=== PATIENT | male | born 1955 | race Caucasian/White ===

== ENCOUNTER 2018-05-19 19:41 | Observation (INO) | payer OTHER ==
--- NOTE | 2018-05-19 21:44 | RAD REPORT ---
EXAM DESCRIPTION: CT - Head Brain Wo Cont - 05/19/2018 9:33 pm CLINICAL HISTORY: hypertension;Headache COMPARISON: No comparisons TECHNIQUE: All CT scans are performed using dose optimization technique as appropriate and may inclu de automated exposure control or mA/KV adjustment according to patient size. FINDINGS: No intracranial hemorrhage, hydrocephalus or extra-axial fluid collection.No areas of brai n edema or evidence of midline shift. The paranasal sinuses and mastoids are clear. The calvarium is intact. Vertebral atherosclerosis note d. IMPRESSION: No acute intracranial abnormality.
[2018-05-19 21:48] LABS: Absolute Lymphocytes (CBC) 2.2 K/uL (0.7-4.9); Absolute Monocytes 0.4 K/uL (0.1-1.3); Absolute Neutrophil 3.9 K/uL (1.8-8.0); Basophils % 0.4 % (0-1.3); Eosinophils % 1.2 % (0-4.4); Hematocrit 40.2 % (39.6-49.0); Lymphocytes % 33.7 % (15.3-44.8); MCH 30.5 pg (27.0-35.0); MCV 88.4 fL (80-100); MPV 9.4 fL (7.6-11.3); RBC Red Blood Cell Count 4.56 M/uL (4.33-5.43)
--- NOTE | 2018-05-19 21:48 | RAD REPORT ---
EXAM DESCRIPTION: RAD - Chest Single View - 05/19/2018 9:43 pm CLINICAL HISTORY: DYSPNEA Chest pain. COMPARISON: No comparisons FINDINGS: Portable technique limits examination quality. The lungs are grossly clear. The heart is mildly prominent in size. No displaced fractures. IMPRESSION: No acute intrathoracic process suspected.
[2018-05-19 22:06] LABS: Albumin 3.6 g/dL (3.4-5.0); Bilirubin Direct 0.2 mg/dL (0-0.2); Bilirubin Total 0.4 mg/dL (0.2-1.0); CKMB Creatine Kinase MB 1.3 ng/mL (0.3-3.6); Magnesium 1.9 mg/dL (1.8-2.4); Potassium 3.9 mmol/L (3.5-5.1); Protein, Total 6.8 g/dL (6.4-8.2)
--- NOTE | 2018-05-19 23:37 | EDPHYS ---
Physician Documentation [facility] Name: Brooks Nye Age: 62 yrs Sex: Male : 1955 Arrival Date: 05/19/2018 Time: 19:42 Bed 26 Private MD: ED Physician Isai Gonzales HPI: 05/19 21:15 This 62 yrs old Male presents to ER via Ambulatory with complaints of cp Shortness Of Breath, High Blood Pressure. 21:15 The patient has shortness of breath with light activity. cp 21:15 Onset: The symptoms/episode began/occurred gradually, and became worse today. cp 21:15 Duration: The symptoms are continuous, and are steadily getting worse. Associated signs cp and symptoms: Pertinent positives: elevated blood pressure, Pertinent negatives: chest pain, non-productive cough, productive cough, fever, visual changes, vomiting. Severity of symptoms: in the emergency department the symptoms are unchanged despite home interventions. Historical: - Allergies: 20:00 No Known Allergies; lk1 - PMHx: 20:00 Hypertension; High Cholesterol; Diabetes - NIDDM; lk1 - PSHx: 20:00 Tonsillectomy; lk1 - Immunization history:: Adult Immunizations up to date. - Social history:: Smoking status: Patient/guardian denies using tobacco, the patient reports quitting approximately 12 years ago. - Ebola Screening: : No symptoms or risks identified at this time. ROS: 21:20 Constitutional: Negative for body aches, chills, fever, poor PO intake. cp 21:20 Eyes: Negative for injury, pain, redness, and discharge. cp 21:20 ENT: Negative for drainage from ear(s), ear pain, sore throat, difficulty swallowing, difficulty handling secretions. 21:20 Cardiovascular: Negative for chest pain, palpitations. 21:20 Respiratory: Positive for shortness of breath, on exertion. Negative for cough, wheezing. 21:20 Abdomen/GI: Negative for abdominal pain, nausea, vomiting, and diarrhea, black/tarry stool, rectal bleeding. 21:20 Back: Negative for pain at rest, pain with movement, radiated pain. 21:20 : Negative for urinary symptoms. 21:20 Skin: Negative for cellulitis, rash. 21:20 Neuro: Negative for altered mental status, dizziness, headache, syncope, near syncope, weakness. 21:20 All other systems are negative. Exam: 21:28 Constitutional: The patient appears in no acute distress, alert, awake, cp non-diaphoretic, non-toxic, well developed, well nourished. 21:28 Head/Face: Normocephalic, atraumatic. Eyes: Pupils equal round and reactive to light, cp extra-ocular motions intact. Lids and lashes normal. Conjunctiva and sclera are non-icteric and not injected. Cornea within normal limits. Periorbital areas with no swelling, redness, or edema. ENT: Nares patent. No nasal discharge, no septal abnormalities noted. Tympanic membranes are normal and external auditory canals are clear. Oropharynx with no redness, swelling, or masses, exudates, or evidence of obstruction, uvula midline. Mucous membranes moist. Neck: Trachea midline, no thyromegaly or masses palpated, and no cervical lymphadenopathy. Supple, full range of motion without nuchal rigidity, or vertebral point tenderness. No Meningismus. Chest/axilla: Normal chest wall appearance and motion. Nontender with no deformity. No lesions are appreciated. 21:28 Cardiovascular: Rate: bradycardic, Rhythm: regular, Pulses: Pulses are 2+ in right radial artery and left radial artery. Edema: mild bilateral lower legs, JVD: is not appreciated. 21:28 Respiratory: the patient does not display signs of respiratory distress, Respirations: normal, no use of accessory muscles, no retractions, no splinting, no tachypnea, labored breathing, is not present, Breath sounds: are clear throughout, no decreased breath sounds, no stridor, no wheezing. 21:28 Abdomen/GI: Inspection: abdomen appears normal, Bowel sounds: active, all quadrants, Palpation: abdomen is soft and non-tender, in all quadrants, rebound tenderness, is not appreciated, voluntary guarding, is not appreciated, involuntary guarding, is not appreciated. 21:28 Back: pain, is absent, ROM is normal. 21:28 Skin: cellulitis, is not appreciated, no rash present. 21:28 Neuro: Orientation: to person, place \T\ time. Mentation: lucid, able to follow commands, Cerebellar function: is grossly normal, Motor: moves all fours, strength is normal, Sensation: no obvious gross deficits. 21:58 ECG was reviewed by the Attending Physician. cp Vital Signs: 20:01 BP 184 / 58; Pulse 54; Resp 20; Temp 97.4(TE); Pulse Ox 98% on R/A; Weight 140.61 kg lk1 (R); Height 6 ft. 0 in. (182.88 cm) (R); Pain 0/10; 21:32 BP 169 / 62; Pulse 51; Resp 18; Pulse Ox 98% on R/A; mb3 23:11 BP 142 / 57; Pulse 45; Resp 18; Pulse Ox 96% on R/A; mb3 23:30 BP 131 / 68; Pulse 44; Resp 18; Pulse Ox 98% on R/A; mb3 05/20 01:40 BP 157 / 65; Pulse 46; Resp 18; Pulse Ox 97% on R/A; mb3 05/19 20:01 Body Mass Index 42.04 (140.61 kg, 182.88 cm) lk1 MDM: 05/19 20:45 Patient medically screened. cp 22:35 Data reviewed: vital signs, nurses notes, lab test result(s), EKG, radiologic studies, cp plain films. 22:35 Test interpretation: by ED physician or midlevel provider: ECG, plain radiologic cp studies. 23:00 Physician consultation: Axel Cotto MD was contacted at 23:00, regarding admission, cp to the telemetry unit. patient's condition. 05/19 21:14 Order name: Basic Metabolic Panel; Complete Time: 22:29 cp 05/19 22:30 Interpretation: Normal except: GLUC 240; BUN 21; CRE 1.40; GFR 52. cp 05/19 21:14 Order name: CBC with Diff; Complete Time: 21:57 cp 05/19 21:14 Order name: Ckmb; Complete Time: 22:29 cp 05/19 21:14 Order name: CPK; Complete Time: 22:29 cp 05/19 21:14 Order name: LFT's; Complete Time: 22:29 cp 05/19 21:14 Order name: Magnesium; Complete Time: 22:29 cp 05/19 21:14 Order name: NT PRO-BNP; Complete Time: 22:29 cp 05/19 21:14 Order name: PT-INR; Complete Time: 21:57 cp 05/19 21:14 Order name: Ptt, Activated; Complete Time: 21:57 cp 05/19 21:14 Order name: Troponin (emerg Dept Use Only); Complete Time: 22:29 cp 05/19 21:14 Order name: XRAY Chest (1 view); Complete Time: 21:57 cp 05/19 21:14 Order name: CT Head Brain wo Cont; Complete Time: 21:57 cp 05/19 23:31 Order name: Urine Dipstick--Ancillary (enter results) rg2 05/19 21:14 Order name: EKG; Complete Time: 21:15 cp 05/19 21:14 Order name: Cardiac monitoring; Complete Time: 21:17 cp 05/19 21:14 Order name: EKG - Nurse/Tech; Complete Time: 21:49 cp 05/19 21:14 Order name: IV Saline Lock; Complete Time: 21:17 cp 05/19 21:14 Order name: Labs collected and sent; Complete Time: 21:17 cp 05/19 21:14 Order name: O2 Per Protocol; Complete Time: 21:17 cp 05/19 21:14 Order name: O2 Sat Monitoring; Complete Time: 21:17 cp 05/19 21:14 Order name: Urine Dipstick-Ancillary (obtain specimen); Complete Time: 23:27 cp EC:58 Rate is 46 beats/min. Rhythm is regular. PA interval is normal. QRS interval is normal. cp QT interval is normal. No ST changes noted. Interpreted by me. Reviewed by me. Administered Medications: 05/20 01:59 Not Given (nursing judgement): hydrALAZINE 10 mg IV at calculated rate once mb3 Disposition: 05/19/18 23:36 Hospitalization ordered by Axel Cotto for Observation. Preliminary diagnosis are Hypertensive heart disease, Dyspnea, unspecified. - Bed requested for Telemetry/MedSurg (observation). - Status is Observation. mb3 - Condition is Stable. - Problem is new. - Symptoms have improved. UTI on Admission? No Addendum: 05/21/2018 11:10 Co-signature as Attending Physician, Isai Gonzales MD I agree with the assessment and w a plan of care. Signatures: Dispatcher [employer] EDMS Lizette Yao rg2 Emigdio Metzger PA PA cp Kluge, Leah RN RN lk1 Isai Gonzales MD MD ar Khalil, Hemanth, RN RN mb3 Corrections: (The following items were deleted from the chart) 05/20 00:59 05/19 23:36 Hospitalization Ordered by Axel Cotto MD for Observation. Preliminary rg2 diagnosis is Hypertensive heart disease; Dyspnea, unspecified. Bed requested for Telemetry/MedSurg (observation). Status is Observation. Condition is Stable. Problem is new. Symptoms have improved. UTI on Admission? No. cp 05/20 02:09 00:59 05/19/2018 23:36 Hospitalization Ordered by Axel Cotto MD for Observation. mb3 Preliminary diagnosis is Hypertensive heart disease; Dyspnea, unspecified. Bed requested for Telemetry/MedSurg (observation). Status is Observation. Condition is Stable. Problem is new. Symptoms have improved. UTI on Admission? No. rg2
--- NOTE | 2018-05-19 23:37 | ER ---
Nurse's Notes [facility] Name: Brooks Nye Age: 62 yrs Sex: Male : 1955 Arrival Date: 05/19/2018 Time: 19:42 Bed 26 Private MD: Diagnosis: Hypertensive heart disease;Dyspnea, unspecified Presentation: 05/19 19:58 Presenting complaint: Patient states: "I have shortness of breath and a little lk1 lightheaded. I am a bit shaky. I took my blood pressure 3 times and its 195/86.". Transition of care: patient was not received from another setting of care. Onset of symptoms was May 17, 2018. Risk Assessment: Do you want to hurt yourself or someone else? Patient reports no desire to harm self or others. Initial Sepsis Screen: Does the patient meet any 2 criteria? No. Patient's initial sepsis screen is negative. Does the patient have a suspected source of infection? No. Patient's initial sepsis screen is negative. Care prior to arrival: None. 19:58 Method Of Arrival: Ambulatory [facility] 19:58 Acuity: BLAIR 3 lk1 Triage Assessment: 05/20 01:47 General: Appears in no apparent distress. comfortable. Respiratory: Onset: The mb3 symptoms/episode began/occurred gradually, the patient has moderate shortness of breath. Respiratory: Reports shortness of breath at rest. Historical: - Allergies: 05/19 20:00 No Known Allergies; lk1 - PMHx: 20:00 Hypertension; High Cholesterol; Diabetes - NIDDM; lk1 - PSHx: 20:00 Tonsillectomy; lk1 - Immunization history:: Adult Immunizations up to date. - Social history:: Smoking status: Patient/guardian denies using tobacco, the patient reports quitting approximately 12 years ago. - Ebola Screening: : No symptoms or risks identified at this time. Screenin/29 01:47 Abuse screen: Denies threats or abuse. Nutritional screening: No deficits noted. mb3 Tuberculosis screening: No symptoms or risk factors identified. Fall Risk None identified. Assessment: 05/19 21:27 General: Appears in no apparent distress. comfortable, Behavior is calm, cooperative, mb3 appropriate for age. Pain: Complains of pain in top of head, right orthodox and left orthodox Pain does not radiate. Neuro: Level of Consciousness is awake, alert, obeys commands, Oriented to person, place, time, situation, Appropriate for age Dispensary Clerk are equal bilaterally Moves all extremities. Cardiovascular: Reports shortness of breath, Denies chest pain, Heart tones present Capillary refill < 3 seconds Patient's skin is warm and dry. Rhythm is sinus bradycardia. Respiratory: Reports shortness of breath at rest Airway is patent Respiratory effort is even, unlabored, Respiratory pattern is regular, symmetrical, Breath sounds are clear bilaterally. GI: Abdomen is round obese, Bowel sounds present X 4 quads. Abd is soft and non tender. : No deficits noted. No signs and/or symptoms were reported regarding the genitourinary system. Derm: No deficits noted. No signs and/or symptoms reported regarding the dermatologic system. 23:56 Reassessment: Patient and/or family updated on plan of care and expected duration. Pain mb3 level reassessed. Patient is alert, oriented x 3, equal unlabored respirations, skin warm/dry/pink. Patient states symptoms have improved. Vital Signs: 20:01 BP 184 / 58; Pulse 54; Resp 20; Temp 97.4(TE); Pulse Ox 98% on R/A; Weight 140.61 kg lk1 (R); Height 6 ft. 0 in. (182.88 cm) (R); Pain 0/10; 21:32 BP 169 / 62; Pulse 51; Resp 18; Pulse Ox 98% on R/A; mb3 23:11 BP 142 / 57; Pulse 45; Resp 18; Pulse Ox 96% on R/A; mb3 23:30 BP 131 / 68; Pulse 44; Resp 18; Pulse Ox 98% on R/A; mb3 05/20 01:40 BP 157 / 65; Pulse 46; Resp 18; Pulse Ox 97% on R/A; mb3 05/19 20:01 Body Mass Index 42.04 (140.61 kg, 182.88 cm) lk1 ED Course: 05/19 19:42 Patient arrived in ED. am2 19:59 Triage completed. lk1 20:03 Arm band placed on right wrist. lk1 20:45 Emigdio Metzger PA is PHCP. cp 20:45 Isai Gonzales MD is Attending Physician. cp 21:15 Hemanth Khalil, BONNY is Primary Nurse. mb3 21:16 Inserted saline lock: 20 gauge in left forearm, using aseptic technique. Blood mb3 collected. 21:[address] nj 21:33 CT completed. Patient tolerated procedure well. Patient moved back from CT. nj 21:33 CT Head Brain wo Cont In Process Unspecified. EDMS 21:41 XRAY Chest (1 view) In Process Unspecified. EDMS 21:45 Patient has correct armband on for positive identification. mb3 23:35 Axel Cotto MD is Hospitalizing Provider. 05/20 01:47 No provider procedures requiring assistance completed. Patient admitted, IV remains in mb3 place. Administered Medications: 01:59 Not Given (nursing judgement): hydrALAZINE 10 mg IV at calculated rate once mb3 Outcome: 05/19 23:36 Decision to Hospitalize by Provider. cp 05/20 01:44 Admitted to Tele accompanied by tech, via wheelchair, room 201, with chart, Report mb3 called to Zulema Wolfe RN Condition: stable Instructed on the need for admit. 02:09 Patient left the ED. mb3 Signatures: Dispatcher [employer] EDMS Emigdio Metzger PA PA cp Tori Gomez, RN RN lk1 Brooks Christian Amanda am2 Barnett, Mark, RN RN mb3
[2018-05-19 23:55] LABS: Urine Blood NEGATIVE (NEG); Urine Glucose 2+ (NEG); Urine Protein NEGATIVE (NEG); Urine Specific Gravity 1.015 (1.005-1.030)
[2018-05-20 02:18] VITALS: O2SAT 97
[2018-05-20] MEDS ORDERED: ONDANSETRON 4 MG/2 ML VIAL IV PRN (02:21)
[2018-05-20] MEDS ORDERED: ACETAMINOPHEN 500 MG TAB PO PRN (02:21)
[2018-05-20 02:47] VITALS: BMI 43.9
--- NOTE | 2018-05-20 04:20 | P.HP ---
Certification for Inpatient Patient admitted to: Observation With expected LOS: <2 Midnights Practitioner: I am a practitioner with admitting privileges, knowledge of patient current condition, hospital course, and medical plan of care. Services: Services provided to patient in accordance with Admission requirements found in Title 42 Section 412.3 of the Code of Federal Regulations Patient History Date of Service: 05/20/18 Reason for admission: dyspnea History of Present Illness: Mr Nye is a 62 years old male with history of HTN, diabetes mellitus II, with recurrent episodes of lower extremity edema, who start with progressive SOB since 3 days ago. His symptoma get worse with ambulation. He denied PND. No chest pain, dizziness or palpitation. The patient had lightheadedness today, he took his blood pressure and was elevated 195/86 despite to take his home medications. Then he decided to come to ED for evaluation. Lab work remarkable for elevated creatinine 1.4, normal cardica markers, EKG sinus bradycardia at 48 bpm. No fever or chills reported. Allergies No Known Allergies Allergy (Verified 05/20/18 03:06) Home medications list reviewed: Yes (reviewed) Home Medications: Aspirin 81 mg PO DAILY 05/20/18 Atenolol [Tenormin*] 25 mg PO DAILY 05/20/18 Icosapent Ethyl [Vascepa] 2 gm PO BID 05/20/18 Metformin HCl 1,000 mg PO BID 05/20/18 Rosuvastatin Calcium 10 mg PO BEDTIME 05/20/18 hydroCHLOROthiazide [Hydrochlorothiazide] 25 mg PO DAILY 05/20/18 - Past Medical/Surgical History Has patient received pneumonia vaccine in the past: No Diabetic: Yes -: Hypertension -: Hyperlipidemia -: Sleep Apnea -: NIDDM -: tonsillectomy - Family History Father -: Heart disease, Diabetes - Social History Smoking Status: Former smoker Alcohol use: No CD- Drugs: No Caffeine use: No Place of Residence: Home Review of Systems 10-point ROS is otherwise unremarkable Physical Examination - Vital Signs Temperature: 97 F Blood Pressure: 178/74 Pulse: 48 Respirations: 18 Pulse Ox (%): 99 - Physical Exam General: Alert, In no apparent distress HEENT: Atraumatic, PERRLA, Mucous membr. moist/pink, EOMI, Sclerae nonicteric Neck: Supple, 2+ carotid pulse no bruit, No LAD, Without JVD or thyroid abnormality Respiratory: Clear to auscultation bilaterally, Normal air movement Cardiovascular: Regular rate/rhythm, Normal S1 S2 Gastrointestinal: Normal bowel sounds, No tenderness Musculoskeletal: No tenderness Integumentary: No rashes Neurological: Normal speech, Normal strength at 5/5 x4 extr, Normal tone, Normal affect Lymphatics: No axilla or inguinal lymphadenopathy - Studies Laboratory Data (last 24 hrs) 05/19/18 21:16: PT 11.8, INR 1.00, APTT 27.4 05/19/18 21:16: WBC 6.6, Hgb 13.9, Hct 40.2, Plt Count 157 05/19/18 21:16: Sodium 138, Potassium 3.9, BUN 21 H, Creatinine 1.40 H, Glucose 240 H, Magnesium 1.9, Total Bilirubin 0.4, AST 19, ALT 32, Alkaline Phosphatase 75 Assessment and Plan - Problems (Diagnosis) (1) Dyspnea Current Visit: Yes Status: Acute (2) Diabetes mellitus Current Visit: Yes Status: Acute Qualifiers: Diabetes mellitus type: type 2 Diabetes mellitus termite control servicer insulin use: without nursing home use Diabetes mellitus complication status: with unspecified complications Qualified Code(s): E11.8 - Type 2 diabetes mellitus with unspecified complications (3) HTN (hypertension) Current Visit: Yes Status: Acute Qualifiers: Hypertension type: essential hypertension Qualified Code(s): I10 - Essential (primary) hypertension (4) Acute renal injury Current Visit: Yes Status: Acute - Plan The patient will be admitted to the hospital due to dyspena, and uncontrolled HTN. CXR shows no acute abnormalities. Will order an ECHO, consult cardiology team. - Advance Directives Does patient have a Living Will: No Does patient have a Durable POA for Healthcare: No - Code Status/Comfort Care Code Status Assessed: Yes Code Status: Full Code
[2018-05-20 06:05] LABS: Potassium 3.8 mmol/L (3.5-5.1)
[2018-05-20] MEDS ORDERED: POTASSIUM CL SA 10 MEQ TAB PO ONE (06:13)
--- NOTE | 2018-05-20 06:23 | EKG ---
Test Date: 2018-05-19 Test Time: 21:53:57 Lime Plant Operator: SHYANN MEASUREMENT RESULTS: Intervals: Rate: 46 FL: 158 QRSD: 90 QT: 448 QTc: 392 [place]: P: -9 FL: 158 QRS: 33 T: 51 INTERPRETIVE STATEMENTS: Sinus bradycardia Possible Inferior infarct, age undetermined Abnormal ECG No previous ECG available for comparison Electronically Signed On 05-20-18 06:23:11 CDT by Luke Null
[2018-05-20] MEDS: INSULIN -REGULAR HUMAN 50 UNIT/0.5 ML ML SQ SCH ×2 (07:30→11:23)
[2018-05-20] MEDS ORDERED: REGADENOSON 0.4 MG/5 ML SYR IV ONE (08:50)
[2018-05-20] MEDS ORDERED: FUROSEMIDE 40 MG/4 ML VIAL IV SCH (09:00)
[2018-05-20] MEDS ORDERED: hydroCHLOROthiazide 25 MG TAB PO SCH (09:00)
[2018-05-20] MEDS ORDERED: FUROSEMIDE 40 MG TABLET PO SCH (09:00)
[2018-05-20] MEDS ORDERED: LISINOPRIL 20 MG TAB PO SCH (09:00)
[2018-05-20] MEDS ORDERED: ENOXAPARIN 40 MG/0.4 ML SQ SCH (09:00)
[2018-05-20] MEDS ORDERED: ASPIRIN 81 MG CHEWABLE TABLET PO SCH (09:00)
--- NOTE | 2018-05-20 10:18 | CON ---
Chief Complaint: Shortness of breath. History Of Present Illness: Mr. Nye has a history of obesity, diabetes, hypertension, dyslipidemi a. Takes medicines, but recently has been feeling intolerant of exertion, makes him feel short of br eath. He denies pain, but says its shortness of breath with minimal exertion. Denies cough, hemopty sis, fevers, chills, sweats, orthopnea or pedal edema. He uses no tobacco, alcohol use minimal. No illegal drugs. Medications: Outpatient medications have been Crestor 10 mg, atenolol 25 mg, hydrochlorothiazide 25 mg, metformin 1000 b.i.d., Vascepa 2 g b.i.d., and aspirin. Physical Examination: General: He is 6 feet tall, 323 pounds. HEENT: Normal. Lungs: Clear. Heart Exam: Within normal limits. Abdomen: Soft. Extremities: Normal. Carotids: No bruit. Normal distal pulses. His electrocardiogram shows sinus bradycardia, possible inferior infarct, otherwise normal. Cardiac enzymes are normal. Chest x-ray normal. CAT scan of the head is normal. Impression: I think these symptoms are likely due to coronary heart disease. He has all the risk fa ctors, but atypical symptoms. I will recommend a pharmacologic nuclear stress test. If that is abnormal, we will discuss doing a cardiac cath. SANDY Voice ID: [id number] Report ID: [id number]
--- NOTE | 2018-05-20 11:19 | P.PN ---
Subjective Date of Service: 05/20/18 Primary Care Provider: Dr. Lima([place], [place]/[phone]) Chief Complaint: dyspnea Subjective: Improving Physical Examination - Vital Signs Temperature: 97.6 F Blood Pressure: 154/85 Pulse: 76 Respirations: 18 Pulse Ox (%): 98 - Physical Exam General: Alert, In no apparent distress, Oriented x3, Cooperative HEENT: Atraumatic Neck: Supple Respiratory: Clear to auscultation bilaterally, Normal air movement Cardiovascular: Normal pulses, Regular rate/rhythm Gastrointestinal: Normal bowel sounds, Soft and benign, Non-distended, No tenderness, No masses, No rebound, No guarding Musculoskeletal: No erythema, No tenderness, No warmth Integumentary: No tenderness/swelling, No erythema, No warmth, No cyanosis Neurological: Normal speech, Normal strength at 5/5 x4 extr, Normal tone - Studies Laboratory Data (last 24 hrs) 05/19/18 21:16: PT 11.8, INR 1.00, APTT 27.4 05/19/18 21:16: WBC 6.6, Hgb 13.9, Hct 40.2, Plt Count 157 05/19/18 21:16: Sodium 138, Potassium 3.9, BUN 21 H, Creatinine 1.40 H, Glucose 240 H, Magnesium 1.9, Total Bilirubin 0.4, AST 19, ALT 32, Alkaline Phosphatase 75 Medications List Reviewed: Yes Assessment & Plan - Problems (Diagnosis) (1) Acute renal injury Onset Date: 05/20/18 Current Visit: Yes Status: Acute Plan: Improved. Patient received diuretic therapy. Patient likely with underlying CHF. Cardiology recommends echocardiogram and stress test to further assess. Patient has risk factors for CAD. (2) Diabetes mellitus Onset Date: 05/20/18 Current Visit: Yes Status: Chronic Plan: Will continue sliding scale. A1c 7.5. Qualifiers: Diabetes mellitus type: type [address] insulin use: without ct technician use Diabetes mellitus complication status: with unspecified complications Qualified Code(s): E11.8 - Type 2 diabetes mellitus with unspecified complications (3) Dyspnea Onset Date: 05/20/18 Current Visit: Yes Status: Acute Plan: Possible underlying CAD with CHF. Will continue diuretic therapy. Lasix adjusted. Cardiology recommends echo and cardiac stress test. Patient has risk factors for CAD. Patient may require heart catheterization if stress test abnormal. Qualifiers: Dyspnea type: shortness of breath Qualified Code(s): R06.02 - Shortness of breath; R06.00 - Dyspnea, unspecified; R06.01 - Orthopnea (4) HTN (hypertension) Onset Date: 05/20/18 Current Visit: Yes Status: Chronic Plan: Blood pressure is elevated. Medications adjusted for better control. Atenolol discontinued due to bradycardia. Lisinopril added. Qualifiers: Hypertension type: essential hypertension Qualified Code(s): I10 - Essential (primary) hypertension (5) Bradycardia Current Visit: Yes Status: Acute Plan: Likely from medication. Atenolol discontinued. (6) Edema Current Visit: Yes Status: Acute Plan: Possible CHF. Continue as above. Echocardiogram pending. Continue Lasix. Qualifiers: Edema type: unspecified Qualified Code(s): R60.9 - Edema, unspecified (7) Hyperlipidemia Current Visit: Yes Status: Chronic Plan: Restart home medication-Crestor. Lipid panel controlled. Qualifiers: Hyperlipidemia type: unspecified Qualified Code(s): E78.5 - Hyperlipidemia , unspecified Discharge Plan: Home Plan to discharge in: 24 Hours Time Spent Managing Pts Care (In Minutes): 55
--- NOTE | 2018-05-20 13:05 | TREADPHA ---
DX: DYSPNEA Date of Study: 05/20/2018 Ht: 6 0 Wt: 323 lb 8 oz Consulting Physician: JELLY MEDICATIONS: TYLENOL, ASPIRIN, LOVENOX, LASIX, NOVOLIN-R, PRINIVIL, ZOFRAN, CRESTOR HISTORY: 62 YEAR OLD MALE WITH COMPLAINTS OF CHEST PAIN. HISTORY OF DIABETES MELLITUS, HYPERTENSION, DYSLIPIDEMIA, FORMER SMOKER PHYSICIAL EXAMINATION: RESTING B.P.: 192/76 RESTING H.R.: 50 RESTING EKG: NORMAL PROTOCOL: LEXISCAN EXERCISE TIME: 3:30 B.P. AT PEAK STRESS: 195/73 IMPRESSION: LEXISCAN INJECTED, CARDIOLITE PER PROTOCOL. SEE NUCLEAR MEDICINE REPORT. NO SUPRAVENTRICULAR TACHYCARDIA. NO VENTRICULAR TACHYCARDIA. FREQUENT PREMATURE VENTRICULAR COMPLEXES AFTER ADMINISTRATION OF LEXISCAN. DENIED CHEST PAIN. NON-DIAGNOSTIC ELECTROCARDIOGRAM WITH LEXISCAN STRESS.
--- NOTE | 2018-05-20 13:16 | ECHO ---
HEIGHT: 6 ft 0 in WEIGHT: 323 lb 8 oz DATE OF STUDY: 05/20/[address]: Axel Walton MD 2-DIMENSIONAL: YES M.MODE: YES DOPPLER: YES COLOR FLOW: YES TDS: PORTABLE: DEFINITY: BUBBLE STUDY: DIAGNOSIS: DYSPNEA CARDIAC HISTORY: CATHERIZATION: NO SURGERY: NO PROSTHETIC VALVE: NO PACEMAKER: NO MEASUREMENTS (cm) DIASTOLIC (NORMALS) SYSTOLIC (NORMALS) IVSd 1.2 (0.6-1.2) LA Diam 4.5 (1.9-4.0) LVEF 61% LVIDd 6.0 (3.5-5.7) LVIDs 4.0 (2.0-3.5) %FS 33% LVPWd 1.4 (0.6-1.2) Ao Diam 2.6 (2.0-3.7) 2 DIMENSIONAL ASSESSMENT: RIGHT ATRIUM: NORMAL LEFT ATRIUM: DILATED RIGHT VENTRICLE: NORMAL LEFT VENTRICLE: LEFT VENTRICULAR HYPERTROPHY TRICUSPID VALVE: NORMAL MITRAL VALVE: NORMAL PULMONIC VALVE: NORMAL AORTIC VALVE: NORMAL PERICARDIAL EFFUSION: NONE AORTIC ROOT: NORMAL LEFT VENTRICULAR WALL MOTION: NORMAL DOPPLER/COLOR FLOW: MILD MITRAL AND TRICUSPID REGURGITATION. NORMAL RIGHT VENTRICULAR SYSTOLIC PRESSURE. COMMENTS: NORMAL LEFT VENTRICULAR EJECTION FRACTION. LEFT VENTRICULAR HYPERTROPHY. DILATED LEFT ATRIUM. MILD MITRAL AND TRICUSPID REGURGITATION. TECHNOLOGIST: SANDIP MORRIS
--- NOTE | 2018-05-20 13:16 | RAD REPORT ---
EXAM DESCRIPTION: NM - Rest Stress Cardiac Imaging - 05/20/2018 1:08 pm CLINICAL HISTORY: CHEST PAIN Chest pain. COMPARISON: No comparisons TECHNIQUE: The patient was administered approximately 10mCi of Tc 99m Sestamibi prior to resting SPE CT imaging of the heart. The patient was then administered approximately 30 mCi of Tc 99m Sestamibi f ollowing exercise or pharmacologic stress. Multiplanar SPECT images were reviewed. FINDINGS: No stress induced ischemic defect is seen to suggest stress induced ischemia. Small fixed defect is seen at the LV apex most compatible with scar tissue. The end diastolic volume is 148 ml, the end systolic volume is 57 ml, and the ejection fraction is 62 %. IMPRESSION: No stress induced ischemia. Small area of scar tissue LV apex.
--- NOTE | 2018-05-20 13:43 | P.DS ---
Admission Date: 05/20/18 Discharge Date: 05/20/18 Primary Care Provider: Dr. Lima([place], [place]/[phone]) Disposition: ROUTINE DISCHARGE Discharge Condition: GOOD Reason for Admission: dyspnea Consultations: Cardiology-Dr. Null Procedures: CT head: Unremarkable Chest x-ray: Unremarkable Cardiac stress test: FINDINGS: No stress induced ischemic defect is seen to suggest stress induced ischemia. Small fixed defect is seen at the LV apex most compatible with scar tissue. The end diastolic volume is 148 ml, the end systolic volume is 57 ml, and the ejection fraction is 62 %. IMPRESSION: No stress induced ischemia. Small area of scar tissue LV apex. Echocardiogram: Ejection fraction 61% DOPPLER/COLOR FLOW: MILD MITRAL AND TRICUSPID REGURGITATION. NORMAL RIGHT VENTRICULAR SYSTOLIC PRESSURE. COMMENTS: NORMAL LEFT VENTRICULAR EJECTION FRACTION. LEFT VENTRICULAR HYPERTROPHY. DILATED LEFT ATRIUM. MILD MITRAL AND TRICUSPID REGURGITATION - Problems (1) Acute renal injury Onset Date: 05/20/18 Current Visit: Yes Status: Acute (2) Diabetes mellitus Onset Date: 05/20/18 Current Visit: Yes Status: Chronic Qualifiers: Diabetes mellitus type: type 2 Diabetes mellitus exterminator termite insulin use: without exterminator termite use Diabetes mellitus complication status: with unspecified complications Qualified Code(s): E11.8 - Type 2 diabetes mellitus with unspecified complications (3) Dyspnea Onset Date: 05/20/18 Current Visit: Yes Status: Acute Qualifiers: Dyspnea type: shortness of breath Qualified Code(s): R06.02 - Shortness of breath; R06.00 - Dyspnea, unspecified; R06.01 - Orthopnea (4) HTN (hypertension) Onset Date: 05/20/18 Current Visit: Yes Status: Chronic Qualifiers: Hypertension type: essential hypertension Qualified Code(s): I10 - Essential (primary) hypertension (5) Bradycardia Current Visit: Yes Status: Acute (6) Edema Current Visit: Yes Status: Acute Qualifiers: Edema type: unspecified Qualified Code(s): R60.9 - Edema, unspecified (7) Hyperlipidemia Current Visit: Yes Status: Chronic Qualifiers: Hyperlipidemia type: unspecified Qualified Code(s): E78.5 - Hyperlipidemia , unspecified (8) Obesity Current Visit: Yes Status: Chronic Qualifiers: Obesity type: due to excess calories Obesity classification: adult class 3 (BMI >= 40) Serious obesity comorbidity presence: with serious comorbidity Body mass index: BMI 40.0-44.9 Qualified Code(s): E66.01 - Morbid (severe) obesity due to excess calories; Z68.41 - Body mass index (BMI) 40.0-44.9, adult (9) CHF (congestive heart failure) Current Visit: Yes Status: Suspected Qualifiers: Heart failure type: diastolic Heart failure chronicity: acute on chronic Qualified Code(s): I50.33 - Acute on chronic diastolic (congestive) heart failure Brief History of Present Illness: 62-year-old male presented emergency room with shortness of breath. Patient has noted increased shortness of breath with exertion. He also reports elevated blood pressure. Patient with history of diabetes, hypertension, hyperlipidemia. Patient was seen in the emergency room. He was admitted for observation and evaluation. Hospital Course: During the course of his stay his shortness of breath improved. Patient was evaluated by cardiology. Chest x-ray unremarkable. CT head unremarkable. Echocardiogram showed ejection fraction of 61%. Cardiology recommended stress test to evaluate for CAD as he had multiple risk factors. Stress test showed no stress-induced ischemia. At discharge he without significant shortness of breath. Patient had some edema to the lower extremities. Medications have been adjusted. At discharge he will continue with a 1500 cc per day fluid restriction and low-salt diet. Patient will continue with aspirin 81 mg daily. At discharge he will continue with Lasix 40 mg daily. He is to monitor his weight daily. If his weight increases by more than 5 lb he is to contact his PCP or cardiology for further recommendation. Medications may need to be adjusted in the future. As for the patient follow up with cardiology in 2-4 weeks to monitor his progress. Patient will establish care in the area within the next week. Patient with edema and shortness of breath. Patient may have underlying diastolic CHF. As recommended above patient will continue with a 1500 cc per day fluid restriction and low-salt diet. Patient will continue with Lasix 40 mg 1 pill once daily. Recommendation is for the patient follow up with cardiology in 2-4 weeks to monitor his progress. Recommendation to recheck lab- BMP in 1 week to monitor his progress. Patient has hypertension. Patient had bradycardia likely from medication- atenolol. Upon admission atenolol and hydrochlorothiazide were discontinued. Lisinopril 20 mg 1 pill twice daily has been added. Blood pressure better controlled. At discharge patient will continue with lisinopril 20 mg 1 pill twice daily. Patient will need to monitor his blood pressures daily. Recommendation is to maintain blood pressures less 150/80. Further adjustment can be done by his PCP. Recommendation to recheck lab-BMP in 1 week to monitor his progress as he will be starting in JAN-inhibitor and diuretic therapy. Patient has diabetes. Hemoglobin A1c 7.5. Patient may continue with metformin 1000 mg 1 pill twice daily. Recommendation is to maintain blood sugars less 140 fasting and less than 200 after meals. Further adjustment can be done by his PCP. As mentioned previously, recheck lab-BMP in 1 week to monitor his progress. Medications may need to be adjusted. Patient has hyperlipidemia. This is well controlled. LDL 55. Patient will continue with Crestor 10 mg daily. Patient also takes fish oil. Lifestyle modification education will be provided. Patient may need to be evaluated for sleep apnea as an outpatient. This can be done with the help of his PCP. Patient had mild renal insufficiency. This improved. Recommendation to recheck lab-BMP in 1 week to monitor his progress as the patient will be starting diurectic-Lasix and [id number]-Sndalntvvy. Recommendation on no use of nonsteroidal anti-inflammatories. Future medications may need to be renally dosed and monitored. Patient may need to be assessed for chronic renal disease. Nephrology consultation may be required as an outpatient. Vital Signs/Physical Exam: Temp Pulse Resp BP Pulse Ox 97.6 F 76 18 154/85 H 98 05/20/18 11:19 05/20/18 11:19 05/20/18 11:19 05/20/18 11:19 05/20/18 11:19 General: Alert, In no apparent distress, Oriented x3, Cooperative HEENT: Atraumatic Neck: Supple Respiratory: Clear to auscultation bilaterally, Normal air movement Cardiovascular: Normal pulses, Regular rate/rhythm Gastrointestinal: Normal bowel sounds, Soft and benign, Non-distended, No tenderness, No masses, No rebound, No guarding Musculoskeletal: No erythema, No tenderness, No warmth Integumentary: No erythema, No warmth, No cyanosis, Tenderness/swelling (Mild pitting edema to the lower extremities bilateral) Neurological: Normal speech, Normal strength at 5/5 x4 extr, Normal tone, Normal affect Lymphatics: No axilla or inguinal lymphadenopathy Laboratory Data at Discharge: WBC 6.6 K/uL (4.3-10.9) 05/19/18 21:16 Hgb 13.9 g/dL (13.6-17.9) 05/19/18 21:16 Hct 40.2 % (39.6-49.0) 05/19/18 21:16 Plt Count 157 K/uL (152-406) 05/19/18 21:16 PT 11.8 SECONDS (9.5-12.5) 05/19/18 21:16 INR 1.00 05/19/18 21:16 APTT 27.4 SECONDS (24.3-36.9) 05/19/18 21:16 Sodium 140 mmol/L (136-145) 05/20/18 05:17 Potassium 3.8 mmol/L (3.5-5.1) 05/20/18 05:17 BUN 18 mg/dL (7-18) 05/20/18 05:17 Creatinine 1.20 mg/dL (0.55-1.3) 05/20/18 05:17 Glucose 164 mg/dL (74-106) H 05/20/18 05:17 Magnesium 1.9 mg/dL (1.8-2.4) 05/19/18 21:16 Total Bilirubin 0.4 mg/dL (0.2-1.0) 05/19/18 21:16 AST 19 U/L (15-37) 05/19/18 21:16 ALT 32 U/L (12-78) 05/19/18 21:16 Alkaline Phosphatase 75 U/L (45-117) 05/19/18 21:16 Troponin I < 0.02 ng/mL (0.0-0.045) 05/20/18 10:35 Triglycerides 86 mg/dL (<150) 05/20/18 05:17 Cholesterol 101 mg/dL (<200) 05/20/18 05:17 HDL Cholesterol 29 mg/dL (40-60) L 05/20/18 05:17 Cholesterol/HDL Ratio 3.48 05/20/18 05:17 Home Medications: Aspirin 81 mg PO DAILY 05/20/18 Furosemide [Lasix*] 40 mg PO DAILY #30 tab 05/20/18 Icosapent Ethyl [Vascepa] 2 gm PO BID 05/20/18 Lisinopril [Prinivil*] 20 mg PO BID #60 tab 05/20/18 Metformin HCl 1,000 mg PO BID 05/20/18 Rosuvastatin Calcium 10 mg PO BEDTIME 05/20/18 New Medications: Furosemide [Lasix*] 40 mg PO DAILY #30 tab Lisinopril [Prinivil*] 20 mg PO BID #60 tab Patient Discharge Instructions: 1. Patient will need to establish care in the area to follow up this hospitalization. Recommendation is to set up appointment within 1 week. 2. Patient presented with shortness of breath. Patient with multiple risk factors. Patient evaluated by Cardiology. Chest x- ray unremarkable. CT head unremarkable. Echocardiogram showed ejection fraction of 61%. Cardiac Stress test showed no stress-induced ischemia. Medications have been adjusted. At discharge he will continue with a 1500 cc per day fluid restriction and low-salt diet. Patient will continue with aspirin 81 mg daily. At discharge he will continue with Lasix 40 mg daily. He is to monitor his weight daily. If his weight increases by more than 5 lb he is to contact his PCP or cardiology for further recommendation. Medications may need to be further adjusted in the future. Recommendation is for the patient to follow up with cardiology in 2-4 weeks to monitor his progress. Recommendation to recheck lab-BMP in 1 week to monitor his progress on diuretic therapy. 2. Patient with edema and shortness of breath. Patient may have underlying diastolic CHF. Ejection fraction 61%. As recommended above patient will continue with a 1500 cc per day fluid restriction and low-salt diet. Patient will continue with Lasix 40 mg 1 pill once daily. Recommendation is for the patient follow up with cardiology in 2-4 weeks to monitor his progress. Recommendation to recheck lab-BMP in 1 week to monitor his progress. 3. Patient has hypertension. Patient had bradycardia likely from medication- atenolol. Upon admission atenolol and hydrochlorothiazide were discontinued. Lisinopril 20 mg 1 pill twice daily has been added. At discharge patient continue with lisinopril 20 mg 1 pill twice daily. Patient will need to monitor his blood pressures daily. Recommendation is to maintain blood pressures less 150/80. Further adjustment can be done by his PCP. Recommendation to recheck lab-BMP in 1 week to monitor his progress as he will be starting in JAN-inhibitor and diuretic therapy. 4. Patient has diabetes. Hemoglobin A1c 7.5. Patient may continue with metformin 1000 mg 1 pill twice daily. Recommendation is to maintain blood sugars less 140 fasting and less than 200 after meals. Further adjustment can be done by his PCP. As mentioned previously, recheck lab-BMP in 1 week to monitor his progress. Medications may need to be adjusted. 5. Patient has hyperlipidemia. This is well controlled. LDL 55. Patient will continue with Crestor 10 mg daily. Patient also takes fish oil. 6. Lifestyle modification education will be provided. Patient may need to be evaluated for sleep apnea as an outpatient. This can be done with the help of his PCP. 7. Patient had mild renal insufficiency. This improved. Recommendation to recheck lab-BMP in 1 week to monitor his progress as the patient will be starting on diurectic-Lasix and [id number]-Nfhhqlhrkl. Recommendation on no use of nonsteroidal anti-inflammatories. Future medications may need to be renally dosed and monitored. Patient may need nephrology consultation as an outpatient. Diet: AHA Activity: Ad kenny Time spent managing pt's care (in minutes): 55
[2018-05-20 15:05] VITALS: BP 169/74; TEMP 98
[2018-05-20] MEDS ORDERED: ROSUVASTATIN 10 MG TAB PO SCH (21:00)
== END 2018-05-20 16:14 | disposition home or self-care (01) ==
LOC: ER 19:41 → ERHOLD 05-20 00:14 → 2ND 05-20 01:02
PROVIDERS: ADMIT Internal Medicine; ATTEND Family Medicine
DX: N17.9 Acute kidney failure, unspecified (principal); G47.33 Obstructive sleep apnea (adult) (pediatric); R00.1 Bradycardia, unspecified; E78.5 Hyperlipidemia, unspecified; E66.01 Morbid (severe) obesity due to excess calories; Z68.41 Body mass index [BMI] 40.0-44.9, adult; I08.1 Rheumatic disorders of both mitral and tricuspid valves; I49.3 Ventricular premature depolarization; I10 Essential (primary) hypertension; R60.0 Localized edema; R06.00 Dyspnea, unspecified; Z79.84 Long term (current) use of oral hypoglycemic drugs; E11.9 Type 2 diabetes mellitus without complications; Z79.82 Long term (current) use of aspirin; Z87.891 Personal history of nicotine dependence
CPT/HCPCS: 36415; 70450; 71045; 78452; 80048; 80061; 80076; 81003; 82550; 82553; 82962; 83036; 83735; 83880; 84484; 85025; 85610; 85730; 93005; 93017; 93306; 99285; A9500; G0378; J1650; J2785